=== PATIENT | female | born 1985 | race African-American/Black ===

== ENCOUNTER 2024-10-02 05:09 | Inpatient (IN) | payer OTHER, MEDICAID ==
[2024-10-02] MEDS: Lactated Ringer's 1,000 ML IV SCH (06:10)
[2024-10-02] MEDS ORDERED: Methylergonovine 0.2 MG/ML VIAL IM PRN (06:15)
[2024-10-02] MEDS ORDERED: Tranexamic Acid 1,000 MG/10 ML VIAL IVP PRN (06:15)
[2024-10-02] MEDS ORDERED: Promethazine HCl 25 MG/ML VIAL IM PRN ×3 (06:15→10:18)
[2024-10-02] MEDS ORDERED: Misoprostol 200 MCG TAB PR PRN ×2 (06:15→10:18)
[2024-10-02] MEDS ORDERED: CEFAZOLIN 2 GM in Sodium Chloride 0.9% 100 ML IVPB SCH (06:15)
[2024-10-02] MEDS ORDERED: fentaNYL 50 mcg/mL 1 mL Vial SLOW IVP PRN ×2 (06:15→08:47)
[2024-10-02] MEDS ORDERED: Diphenoxylate HCl/Atropine Tablet PO PRN (06:15)
[2024-10-02] MEDS ORDERED: Carboprost 250 MCG/ML AMP IM PRN (06:15)
[2024-10-02] MEDS ORDERED: Ondansetron PF 4 MG/2 ML Vial IVP PRN ×3 (06:15→08:47)
[2024-10-02] MEDS ORDERED: Oxytocin 30 units/NS 500 ML 500 ML IV SCH ×2 (06:15→10:18)
[2024-10-02] MEDS ORDERED: hydrALAZINE 20 MG/ML VIAL SLOW IVP PRN ×2 (06:15→10:18)
[2024-10-02] MEDS ORDERED: Bicitra 30 ML UDCUP PO PRN (06:15)
[2024-10-02] MEDS ORDERED: Acetaminophen 500 MG TAB PO PRN (06:15)
[2024-10-02] MEDS ORDERED: Famotidine/PF 20 mg/2ml Vial SLOW IVP PRN (06:15)
[2024-10-02 06:17] VITALS: BMI 25.3
[2024-10-02 06:26] LABS: Hematocrit 36.6 % (34.9-44.5); Hemoglobin 12.1 g/dL (12.0-15.5); Mean Corpuscular HGB CONC 33.1 g/dL (32.0-36.0); Mean Corpuscular Hemoglobin 27.6 pg (27.0-33.0); Mean Corpuscular Volume 83.6 fL (81.6-98.3); Mean Platelet Volume 11.5 fL (7.4-10.4); Platelet Count 213 10x3/uL (150-450); RBC Distribution Width 13.4 % (11.5-14.5); Red Blood Cell (RBC) Count 4.38 10x6/uL (3.90-5.03); White Blood Cell (WBC) Count 7.16 10x3/uL (3.5-10.5)
[2024-10-02 06:58] LABS: HBsAg Index 0.23 S/CO (0-0.99); Hep B Surf Ag - L&D Non-Reactive S/CO (NonReactive)
[2024-10-02 07:00] LABS: Syphilis Antibody Nonreactive (Nonreactive); Syphilis Antibody Index 0.04 S/CO (<1.00 Non-Reactive)
[2024-10-02 07:50] LABS: Amphetamine Not Detected (NotDetected); Barbiturates Screen Not Detected (NotDetected); Benzodiazepine Screen Not Detected (NotDetected); Cocaine Metabolite Screen Detected (NotDetected); Methadone Not Detected (NotDetected); Methamphetamine Not Detected (NotDetected); Opiate Screen Not Detected (NotDetected); Oxycodone Screen Not Detected (NotDetected); Phencyclidine (PCP) Not Detected (NotDetected); THC/Cannabinoid Screen Detected (NotDetected); Tricyclic Screen Not Detected (NotDetected)
[2024-10-02] MEDS ORDERED: Meperidine HCl/PF 25 MG (1 mL) VIAL SLOW IVP PRN (08:47)
[2024-10-02] MEDS ORDERED: Moisturizing Cream (Eucerin) 113 GM JAR TOP PRN (08:47)
[2024-10-02] MEDS ORDERED: Naloxone HCl 0.4 mg/ml Vial IV PRN (08:47)
[2024-10-02] MEDS ORDERED: diphenhydrAMINE 50 MG/ML VIAL IVP PRN (08:47)
[2024-10-02] MEDS ORDERED: HYDROmorphone 0.5 MG/0.5 ML SYRINGE SLOW IVP PRN (08:47)
[2024-10-02] MEDS ORDERED: Ketorolac Tromethamine 30 MG (1 mL) VIAL IVP PRN (08:47)
[2024-10-02] MEDS ORDERED: Naloxone HCl 0.4 mg/ml Vial IVP PRN ×2 (08:47)
[2024-10-02] MEDS ORDERED: Communication Order-Pharmacy FS SCH (09:00)
[2024-10-02] MEDS ORDERED: Ketorolac Tromethamine 30 MG (1 mL) VIAL IVP SCH (09:00)
[2024-10-02] MEDS ORDERED: diphenhydrAMINE 25 MG CAP PO PRN (10:18)
[2024-10-02] MEDS ORDERED: Bisacodyl 10 MG SUPP PR PRN (10:18)
[2024-10-02] MEDS: Oxytocin 10 UNITS/ML VIAL ONE (10:20)
[2024-10-02] MEDS: Dexmedetomidine 200 MCG/2 ML VIAL ONE (10:20)
[2024-10-02] MEDS: Ondansetron PF 4 MG/2 ML Vial ONE (10:20)
[2024-10-02] MEDS: Morphine PF 10 MG/10 ML VIAL ONE (10:20)
[2024-10-02] MEDS: Midazolam HCl 2 mg/2 ml Vial ONE (10:21)
[2024-10-02] MEDS: Hepatitis B Vaccine 10 MCG/0.5 ML SYR ONE (10:21)
[2024-10-02] MEDS: Phytonadione Neonatal 1 MG/0.5 ML AMP ONE (10:21)
[2024-10-02] MEDS: PHENYLEPHRINE-NS 100 MCG/ML 10 ML SYRINGE ONE (10:21)
[2024-10-02] MEDS: Erythromycin Base 0.5% Oint 1 GM TUBE ONE (10:21)
[2024-10-02] MEDS: Boostrix 0.5 ML (Tdap) VIAL (>/=7 yrs of age) IM ONE (10:29)
[2024-10-02] MEDS: Docusate 100 MG CAP PO SCH ×2 (10:36→22:00)
[2024-10-02] MEDS: Prenatal Vitamin 1 TAB PO SCH (10:36)
[2024-10-02] MEDS: Ferrous Sulfate 325 MG TAB PO SCH (10:36)
[2024-10-02] MEDS: Ketorolac Tromethamine 30 MG (1 mL) VIAL IVP SCH (12:16)
[2024-10-02] MEDS ORDERED: HYDROcodone/Acetaminophen 5/325 mg Tablet PO PRN (21:00)
[2024-10-02] MEDS ORDERED: Meperidine HCl/PF 25 MG (1 mL) VIAL IM PRN (21:00)
[2024-10-03] MEDS: Ferrous Sulfate 325 MG TAB PO SCH (01:12)
[2024-10-03 05:45] LABS: Hematocrit 21.6 % (34.9-44.5); Hemoglobin 7.4 g/dL (12.0-15.5); Mean Corpuscular HGB CONC 34.3 g/dL (32.0-36.0); Mean Corpuscular Hemoglobin 28.8 pg (27.0-33.0); Mean Platelet Volume 11.5 fL (7.4-10.4); Platelet Count 199 10x3/uL (150-450); RBC Distribution Width 13.6 % (11.5-14.5); Red Blood Cell (RBC) Count 2.57 10x6/uL (3.90-5.03)
[2024-10-03] MEDS: Prenatal Vitamin 1 TAB PO SCH (07:52)
[2024-10-03] MEDS: HYDROcodone/Acetaminophen 5/325 mg Tablet PO PRN (07:55)
[2024-10-03] MEDS: Ibuprofen 800 MG TAB PO SCH (14:46)
[2024-10-05] MEDS: Simethicone Chewable 80 MG TAB PO PRN (07:50)
[2024-10-05] MEDS: Ondansetron PF 4 MG/2 ML Vial IVP PRN (09:38)
[2024-10-05 11:36] VITALS: BP 126/73; TEMP 97.8
== END 2024-10-05 19:40 | disposition home or self-care (01) | DRG 787 ==
LOC: CSHLD 05:09 → CSHPP 10:47
PROVIDERS: ADMIT Family Medicine; ATTEND Family Medicine
PROC: 10D00Z1 Extraction of Products of Conception, Low, Open Approach (ICD-10-PCS; principal; 2024-10-02)
PROC: 10D17Z9 Manual Extraction of Products of Conception, Retained, Via Natural or Artificial Opening (ICD-10-PCS; 2024-10-02)
DX: O34.211 Maternal care for low transverse scar from previous cesarean delivery (principal); O72.0 Third-stage hemorrhage; O99.324 Drug use complicating childbirth; O99.824 Streptococcus B carrier state complicating childbirth; F12.90 Cannabis use, unspecified, uncomplicated; F14.90 Cocaine use, unspecified, uncomplicated; Z3A.39 39 weeks gestation of pregnancy; Z37.0 Single live birth; Z87.59 Personal history of other complications of pregnancy, childbirth and the puerperium
CPT/HCPCS: 36415; 51702; 80306; 85027; 86780; 86850; 86900; 86901; 87340; C1889; J1885; J2250; J2274; J2405; J2590; J7120